=== PATIENT | female | born 1965 | race Caucasian/White ===

== ENCOUNTER 2017-01-22 11:32 | Emergency (ER) | payer MEDICARE, BC ==
[~2017-01-22] VITALS: Ht 152.4 cm; Wt 78.5 kg
[~2017-01-22 11:32] MED LIST: CLON1 PO; DEPA250T2 PO; DILA100C PO; IBUP-238 PO; LORC10TA PO; ZOFR4TAB3 SL
[2017-01-22 11:35] VITALS: BP 124/87; PULSE 70; RESP 16; TEMP 98.3; O2SAT 99
[2017-01-22] MEDS ORDERED: DEPA500T PO (11:49)
[2017-01-22] MEDS ORDERED: MEMA1CAP3 PO (11:49)
[2017-01-22] MEDS ORDERED: CLON1 PO (11:49)
[2017-01-22] MEDS ORDERED: TRAM50TA PO (11:49)
[2017-01-22] MEDS ORDERED: CYMB30CA PO (11:49)
[2017-01-22] MEDS ORDERED: SODIUM CHLOR 0.9% 1000 ML INJ 1,000 ML IV SCH (11:50)
--- NOTE | 2017-01-22 11:56 | PD ---
HPI Chief Complaint: GI Complaint Time Seen by Provider: 11:39 Travel History International Travel<30 days: No Contact w/Intl Traveler<30days: No Traveled to known affect area: No History of Present Illness HPI The patient is a 51-year-old female who presents emergency department for 2 day history of dizziness, nausea, and abdominal pain. The patient has a history of epilepsy and is followed by her neurologist, Dr. Barrett. The patient was recently placed on a new medication for memory on Wednesday, she took one dose, and her symptoms started. The patient describes dizziness as lightheadedness and the room spinning, not positional, and followed by nausea and abdominal pain. The patient does note nausea but denies any vomiting. She also complains of abdominal pain is located across the left lower and right lower quadrants of the abdomen. She denies any fever, chills, or sweats. She denies any previous history of abdominal surgeries. The patient was able to tolerate liquid this morning without any vomiting. She denies any fever, chills , or sweats. The patient's primary physician is Dr. Sindhu Leone. [facility] Past Medical History Depression: Yes Seizures: Yes (EPILEPSY-LAST SEIZURE ) Influenza Vaccination: No ?: Not Menopausal: Yes Past Surgical History Other Surgery: Yes (VAGAL NERVE STIMULATOR IMPLANT) Social History Alcohol Use: Yes (RARELY) Tobacco Use: No Substance Use: No Allergies-Medications (Allergen,Severity, Reaction): Coded Allergies: No Known Allergies (Verified , 01/22/17) Reported Meds & Prescriptions Reported Meds & Active Scripts Active Reported Tramadol (Tramadol HCl) 50 Mg Tab 50 Mg PO Q6H PRN Namzaric (Memantine-Donepezil) 7-10 mg Cap 1 Cap PO HS Cymbalta DR (Duloxetine HCl) 30 Mg Capdr 30 Mg PO DAILY Depakote DR (Divalproex Sodium) 500 Mg Tabdr 500 Mg PO BID Klonopin (Clonazepam) 1 Mg Tab 1 Mg PO BID Review of Systems Except as stated in HPI: all other systems reviewed are Neg General / Constitutional: No: Fever HENT: Positive: Vertigo, Lightheadedness Cardiovascular: No: Chest Pain or Discomfort Respiratory: No: Shortness of Breath Gastrointestinal: Positive: Nausea, Abdominal Pain, No: Vomiting, Diarrhea Genitourinary: No: Dysuria Musculoskeletal: No: Weakness Neurologic: Positive: Dizziness, Seizures, No: Change in Mentation Physical Exam Narrative GENERAL: Awake, alert, pleasant 51-year-old female appears her stated age and is in no acute respiratory distress. SKIN: Focused skin assessment warm/dry. HEAD: Atraumatic. Normocephalic. EYES: Pupils equal and round. 4 mm bilateral and reactive. EOMs are intact. ENT: No nasal bleeding or discharge. Mucous membranes pink and moist. NECK: Trachea midline. No JVD. CARDIOVASCULAR: Regular rate and rhythm. No murmur appreciated. RESPIRATORY: No accessory muscle use. Clear to auscultation. Breath sounds equal bilaterally. GASTROINTESTINAL: Abdomen soft, mild tenderness left and right lower quadrant. No rebound tenderness, guarding, rigidity. MUSCULOSKELETAL: No obvious deformities. No clubbing. No cyanosis. No edema. NEUROLOGICAL: Awake and alert. No obvious cranial nerve deficits. Motor grossly within normal limits. Normal speech. Nonfocal. PSYCHIATRIC: Appropriate mood and affect; insight and judgment normal. Data Data Last Documented VS Vital Signs Date Time Temp Pulse Resp B/P Pulse Ox O2 Delivery O2 Flow Rate FiO2 01/22/17 12:24 18 98 Room Air 01/22/17 11:35 98.3 70 124/87 Orders Complete Blood Count With Diff (01/22/17 11:50) Comprehensive Metabolic Panel (01/22/17 11:50) Lipase (01/22/17 11:50) Ct Abd/Pel W/O Iv Contrast (01/22/17 11:50) Iv Access Insert/Monitor (01/22/17 11:50) Ecg Monitoring (01/22/17 11:50) Oximetry (01/22/17 11:50) Ondansetron Inj (Zofran Inj) (01/22/17 12:00) Sodium Chlor 0.9% 1000 Ml Inj (Ns 1000 M (01/22/17 11:50) Sodium Chloride 0.9% Flush (Ns Flush) (01/22/17 12:00) Electrocardiogram (01/22/17 11:50) Urinalysis - C+S If Indicated (01/22/17 11:50) Valproic Acid (Depakene) (01/22/17 11:56) Morphine Inj (Morphine Inj) (01/22/17 12:15) Labs Laboratory Tests Test 01/22/17 12:10 White Blood Count 4.1 TH/MM3 Red Blood Count 4.46 MIL/MM3 Hemoglobin 13.0 GM/DL Hematocrit 38.9 % Mean Corpuscular Volume 87.3 FL Mean Corpuscular Hemoglobin 29.2 PG Mean Corpuscular Hemoglobin 33.4 % Concent Red Cell Distribution Width 13.2 % Platelet Count 151 TH/MM3 Mean Platelet Volume 9.1 FL Neutrophils (%) (Auto) 43.2 % Lymphocytes (%) (Auto) 38.7 % Monocytes (%) (Auto) 10.9 % Eosinophils (%) (Auto) 6.5 % Basophils (%) (Auto) 0.7 % Neutrophils # (Auto) 1.8 TH/MM3 Lymphocytes # (Auto) 1.6 TH/MM3 Monocytes # (Auto) 0.4 TH/MM3 Eosinophils # (Auto) 0.3 TH/MM3 Basophils # (Auto) 0.0 TH/MM3 CBC Comment DIFF FINAL Differential Comment Urine Collection Type CLEAN CATCH Urine Color YELLOW Urine Turbidity CLEAR Urine pH 8.0 Urine Specific [place] 1.012 Urine Protein NEG mg/dL Urine Glucose (UA) NEG mg/dL Urine Ketones NEG mg/dL Urine Occult Blood SMALL Urine Nitrite NEG Urine Bilirubin NEG Urine Leukocyte Esterase TRACE Urine RBC 4-9 /hpf Urine WBC 0-2 /hpf Urine Squamous Epithelial 6-8 /hpf Cells Microscopic Urinalysis Comment CULT NOT INDICATED Urine Collection Time 12:10 Sodium Level 142 MEQ/L Potassium Level 3.9 MEQ/L Chloride Level 105 MEQ/L Carbon Dioxide Level 29.2 MEQ/L Anion Gap 8 MEQ/L Blood Urea Nitrogen 22 MG/DL Creatinine 0.64 MG/DL Estimat Glomerular Filtration 97 ML/MIN Rate Random Glucose 85 MG/DL Calcium Level 8.9 MG/DL Total Bilirubin 0.2 MG/DL Aspartate Amino Transf 14 U/L (AST/SGOT) Alanine Aminotransferase 20 U/L (ALT/SGPT) Alkaline Phosphatase 48 U/L Total Protein 7.2 GM/DL Albumin 3.3 GM/DL Lipase 152 U/L [facility] Medical Decision Making Medical Screen Exam Complete: Yes Emergency Medical Condition: Yes Interpretation(s) EKG reveals sinus bradycardia with a heart rate of 58. Nonspecific T-wave changes, inverted T-wave noted in lead 3 and aVF. Laboratory Tests Test 01/22/17 12:10 White Blood Count 4.1 TH/MM3 Red Blood Count 4.46 MIL/MM3 Hemoglobin 13.0 GM/DL Hematocrit 38.9 % Mean Corpuscular Volume 87.3 FL Mean Corpuscular Hemoglobin 29.2 PG Mean Corpuscular Hemoglobin 33.4 % Concent Red Cell Distribution Width 13.2 % Platelet Count 151 TH/MM3 Mean Platelet Volume 9.1 FL Neutrophils (%) (Auto) 43.2 % Lymphocytes (%) (Auto) 38.7 % Monocytes (%) (Auto) 10.9 % Eosinophils (%) (Auto) 6.5 % Basophils (%) (Auto) 0.7 % Neutrophils # (Auto) 1.8 TH/MM3 Lymphocytes # (Auto) 1.6 TH/MM3 Monocytes # (Auto) 0.4 TH/MM3 Eosinophils # (Auto) 0.3 TH/MM3 Basophils # (Auto) 0.0 TH/MM3 CBC Comment DIFF FINAL Differential Comment Urine Collection Type CLEAN CATCH Urine Color YELLOW Urine Turbidity CLEAR Urine pH 8.0 Urine Specific [place] 1.012 Urine Protein NEG mg/dL Urine Glucose (UA) NEG mg/dL Urine Ketones NEG mg/dL Urine Occult Blood SMALL Urine Nitrite NEG Urine Bilirubin NEG Urine Leukocyte Esterase TRACE Urine RBC 4-9 /hpf Urine WBC 0-2 /hpf Urine Squamous Epithelial 6-8 /hpf Cells Microscopic Urinalysis Comment CULT NOT INDICATED Urine Collection Time 12:10 Sodium Level 142 MEQ/L Potassium Level 3.9 MEQ/L Chloride Level 105 MEQ/L Carbon Dioxide Level 29.2 MEQ/L Anion Gap 8 MEQ/L Blood Urea Nitrogen 22 MG/DL Creatinine 0.64 MG/DL Estimat Glomerular Filtration 97 ML/MIN Rate Random Glucose 85 MG/DL Calcium Level 8.9 MG/DL Total Bilirubin 0.2 MG/DL Aspartate Amino Transf 14 U/L (AST/SGOT) Alanine Aminotransferase 20 U/L (ALT/SGPT) Alkaline Phosphatase 48 U/L Total Protein 7.2 GM/DL Albumin 3.3 GM/DL Lipase 152 U/L CT the abdomen and pelvis reveals no acute CT findings in the abdomen or pelvis. Differential Diagnosis Differential diagnosis includes medication side effect, dehydration, gastritis, pancreatitis, biliary colic, diverticulitis, ileus, partial small bowel obstruction, electrolyte abnormality. Narrative Course IV was established, labs are drawn and sent, and the patient was placed on cardiac telemetry monitoring and continuous pulse oximetry monitoring. EKG was ordered and interpreted. The patient was administered Zofran, morphine, and IV fluids. Noncontrast CT of the abdomen and pelvis was ordered to evaluate for possible diverticulitis. Laboratory evaluation reveals normal white count, mildly elevated monocytes. BUN is 22, creatinine is 0.7, revealing mild dehydration. UA reveals a few RBCs but no evidence of infection. Lipase and LFTs are unremarkable. CT the abdomen and pelvis is negative. EKG revealed sinus bradycardia with a rate of 58 with nonspecific T-wave changes, no other acute findings. The patient's symptoms may be secondary to recent medication changes. She is advised to follow-up with her neurologist. The patient will be provided a copy of her CT results and lab results at discharge. She is advised to follow-up with her primary physician, Dr. Sindhu Leone, and her neurologist, Dr. Barrett. Diagnosis Primary Impression: Dizziness Additional Impressions: Nausea Abdominal pain Qualified Code: R10.30 - Lower abdominal pain Patient Instructions: General Instructions, Narcotic given in the ED Additional Instructions: Please provide a patient a copy of her CT results and lab results at discharge. Follow-up with your primary physician. Return if symptoms worsen or progress. Med/Other Pt SpecificInfo: Prescription(s) given Scripts Hydrocodone-Acetaminophen ([place])5-325 mg Tab1 Tab PO Q6H PRN (PAIN) #12 TAB Ref 0 Prov:Cachorro Xie MD 01/22/17 Ondansetron Odt (Zofran Odt)4 Mg Tab4 Mg SL Q6HR PRN (Nausea/Vomiting) #7 TAB Ref 0 Prov:Cachorro Xie MD 01/22/17 Disposition: 01 DISCHARGE HOME Condition: Stable Cachorro Xie MD Jan 22, 2017 11:56
[2017-01-22] MEDS ORDERED: ONDANSETRON HCL 4 MG/2 ML VIAL IVP ONE (12:00)
[2017-01-22] MEDS ORDERED: MORPHINE SULFATE 4 MG/ML INJ IV PUSH ONE (12:00)
[2017-01-22] MEDS ORDERED: SODIUM CHLORIDE 0.9% FLUSH 10 ML FLUSH IV FLUSH PRN (12:00)
[2017-01-22] MEDS ORDERED: MORPHINE SULFATE 8 MG/ML INJ IV PUSH ONE (12:15)
[2017-01-22 12:17] LABS: AUTOMATED NEUTROPHIL # 1.8 TH/MM3 (1.8-7.7); BASOPHIL % 0.7 % (0.0-2.0); EOSINOPHIL # 0.3 TH/MM3 (0-0.4); EOSINOPHIL % 6.5 % (0.0-4.0); HEMATOCRIT 38.9 % (35.0-46.0); HEMO FLAGS DIFF FINAL; LYMPH % 38.7 % (9.0-44.0); LYMPHOCYTE # 1.6 TH/MM3 (1.0-4.8); MEAN CELL VOLUME 87.3 FL (80.0-100.0); MEAN CORPUSCULAR HEMOGLOBIN 29.2 PG (27.0-34.0); MEAN CORPUSCULAR HGB CONC 33.4 % (32.0-36.0); MONO % 10.9 % (0.0-8.0); NEUT % 43.2 % (16.0-70.0); PLATELET COUNT 151 TH/MM3 (150-450); RED BLOOD COUNT 4.46 MIL/MM3 (4.00-5.30); RED CELL DISTRIBUTION WIDTH 13.2 % (11.6-17.2); WHITE BLOOD COUNT 4.1 TH/MM3 (4.0-11.0)
[2017-01-22 12:18] LABS: BLOOD, URINE SMALL (NEG); GLUCOSE,URINE NEG (NEG); KETONE, URINE NEG (NEG); NITRITE,URINE NEG (NEG)
[2017-01-22 12:24] VITALS: RESP 18; O2SAT 98
[2017-01-22 12:26] LABS: CHLORIDE 105 MEQ/L (98-107); COMMENT (UR) CULT NOT INDICATED; CULTURE IF INDICATED CULT NOT INDICATED; METHOD OF COLLECTION CLEAN CATCH; POTASSIUM 3.9 MEQ/L (3.5-5.1); SODIUM (NA) 142 MEQ/L (136-145); URINE COLOR YELLOW (YELLW/STRAW); WBC, URINE 0-2 /hpf (0-5)
[2017-01-22 12:30] LABS: ANION GAP 8 MEQ/L (5-15); BICARBONATE 29.2 MEQ/L (21.0-32.0); BLOOD UREA NITROGEN 22 MG/DL (7-18)
[2017-01-22 12:32] LABS: ALT (GPT) 20 U/L (10-53); AST (GOT) 14 U/L (15-37)
[2017-01-22 12:33] LABS: GLOMERULAR FILTRATION RATE 97 ML/MIN (>89)
[2017-01-22 12:34] LABS: TOTAL BILIRUBIN ADULT 0.2 MG/DL (0.2-1.0)
[2017-01-22 12:35] LABS: ALKALINE PHOSPHATASE 48 U/L (45-117)
--- NOTE | 2017-01-22 12:53 | RADRPT ---
EXAM DATE/TIME: 01/22/2017 12:15 [place] COMPARISON: No previous studies available for comparison. INDICATIONS : Bilateral lower abdominal pain. ORAL CONTRAST: No oral contrast ingested. RADIATION DOSE: 15.88 CTDIvol (mGy) MEDICAL HISTORY : None SURGICAL HISTORY : Kyphoplasty. ENCOUNTER: Initial ACUITY: 2 days PAIN SCALE: 8/10 LOCATION: Bilateral lower quadrant TECHNIQUE: Volumetric scanning of the abdomen and pelvis was performed. Using automated exposure control and ad justment of the mA and/or kV according to patient size, radiation dose was kept as low as reasonably achievable to obtain optimal diagnostic quality images. DICOM format image data is available electro nically for review and comparison. FINDINGS: LOWER LUNGS: The visualized lower lungs are clear. LIVER: There is focal low-density in the liver adjacent to falciform ligament which is likely fatty infiltra tion. There are no suspicious masses. No evidence of biliary ductal dilatation. SPLEEN: Normal size without lesion. PANCREAS: Within normal limits. KIDNEYS: Normal in size and shape. There is no mass, stone, or hydronephrosis. ADRENAL GLANDS: Within normal limits. VASCULAR: There is no aortic aneurysm. BOWEL/MESENTERY: The stomach, small bowel, and colon demonstrate no acute abnormality. There is no free intraperitone al air or fluid. ABDOMINAL WALL: Within normal limits. RETROPERITONEUM: There is no lymphadenopathy. BLADDER: No wall thickening or mass. REPRODUCTIVE: Within normal limits. INGUINAL: There is no lymphadenopathy or hernia. MUSCULOSKELETAL: Previous L1 kyphoplasty. Degenerative changes in the lumbar spine. CONCLUSION: No acute CT findings in the abdomen or pelvis. Travis Solomon MD on January 22, 2017 at 12:42 Board Certified Radiologist. This report was verified electronically.
[2017-01-22] MEDS ORDERED: NORC5TAB PO (12:59)
[2017-01-22] MEDS ORDERED: ZOFR4TAB3 SL (12:59)
[2017-01-22 13:08] VITALS: BP 135/88; PULSE 78; RESP 16; O2SAT 99
--- NOTE | 2017-01-22 14:24 | EKG ---
Date Performed: 01/22/2017 Time Performed: 12:04:41 PTAGE: 51 years EKG: SINUS BRADYCARDIA MODERATE VOLTAGE CRITERIA FOR LVH, CONSIDER NORMAL VARIANT NONSPECIFIC T- WAVE ABNORMALITY BORDERLINE ECG NO PREVIOUS TRACING DOCTOR: Yared Goncalves Interpretating Date/Time 01/22/2017 14:23:21
== END 2017-01-22 13:42 | disposition home or self-care (01) ==
LOC: PHED 11:32
DX: R42 Dizziness and giddiness (principal); R11.0 Nausea; R10.30 Lower abdominal pain, unspecified; G40.909 Epilepsy, unspecified, not intractable, without status epilepticus
CPT/HCPCS: 74176; 80053; 80164; 81001; 83690; 85025; 93005; 96361; 96374; 96375; 99285; J2270; J2405; J7030